=== PATIENT | male | born 1985 | race Caucasian/White ===

== ENCOUNTER 2017-04-02 17:47 | Emergency (ER) | payer OTHER ==
[2017-04-02 19:50] LABS: BILIRUBIN,URINE NEGATIVE (NEGATIVE); GLUCOSE, URINE (UA) NEGATIVE (NEGATIVE); KETONES,URINE (UA) NEGATIVE (NEGATIVE); LEUKOCYTE ESTERASE, URINE NEGATIVE (NEGATIVE); NITRITE,URINE NEGATIVE (NEGATIVE); OCCULT BLOOD,URINE LARGE (NEGATIVE); PH,URINE 7.5 PH (5.0-7.5); PROTEIN,URINE TRACE mg/dL (NEGATIVE); UROBILINOGEN,URINE 0.2 (NORMAL) E.U./dL (NORMAL)
[2017-04-02 20:03] LABS: CLARITY,URINE HAZY (CLEAR)
[2017-04-02 20:15] LABS: BACTERIA,URINE None Seen /HPF (None Seen); SQUAMOUS EPITHELIAL CELL,UR NONE SEEN (<= Few)
[2017-04-02] MEDS ORDERED: ONDANSETRON ODT 4 MG TABLET TL STA (20:20)
[2017-04-02] MEDS ORDERED: KETOROLAC 60 MG/2 ML VIAL IM STA (20:20)
--- NOTE | 2017-04-02 21:13 | ED Physician Documentation ---
PD HPI ABD PAIN - Stated complaint Stated Complaint: ABD PX - Chief complaint Chief Complaint: Abd Pain - History obtained from History obtained from: Patient, Family - History of Present Illness Timing - onset: Yesterday Timing - details: Gradual onset, Still present Quality: Cramping, Aching, Throbbing Location: [facility] Radiation: , Other Associated symptoms: Nausea. No: Fever, Vomiting, Diarrhea, Constipation Similar symptoms before: Has not had sx before Recently seen: Not recently seen - Additional information Additional information: Patient is a 31 year old male with no significant past medical history who is presenting to the emergency department for left lower quadrant abdominal pain with radiation down to his groin. Patient denies any history of kidney stones in the past. Patient does report nausea, secondary to the pain, but no vomiting. Review of Systems Constitutional: denies: Fever, Chills Eyes: denies: Decreased vision, Photophobia Ears: denies: Ear pain, Drainage/discharge Nose: reports: Reviewed and negative Throat: reports: Reviewed and negative Cardiac: denies: Chest pain / pressure, Palpitations Respiratory: denies: Dyspnea, Cough GI: reports: Abdominal Pain, Nausea. denies: Vomiting, Constipation, Diarrhea : denies: Dysuria, Frequency Skin: denies: Rash, Lesions Musculoskeletal: denies: Back pain Neurologic: denies: Generalized weakness, Focal weakness, Numbness Immunocompromised: denies: Immunocompromised PD PAST MEDICAL HISTORY - Present Medications Home Medications: Ambulatory Orders Medication Instructions Recorded Confirmed FLUoxetine [PROzac] 30 mg PO DAILY 04/02/17 04/02/17 Ketorolac [Toradol] 10 mg PO Q6H #20 tablet 04/02/17 Lamotrigine [Lamictal ([place])] 1 tab PO DAILY 04/02/17 04/02/17 Ondansetron Odt [Zofran] 4 mg TL Q6H PRN #20 tablet 04/02/17 Tamsulosin HCl [Flomax] 0.4 mg PO DAILY #10 cap.er.24h 04/02/17 - Allergies Allergies/Adverse Reactions: Allergies Allergy/AdvReac Type Severity Reaction Status Date / Time No Known Drug Allergies Allergy Verified 04/02/17 20:35 PD ED PE NORMAL - Vitals Vital signs reviewed: Yes - General General: Alert and oriented X 3, No acute distress - HEENT HEENT: Atraumatic, PERRL - Cardiac Cardiac: RRR, No murmur - Respiratory Respiratory: No respiratory distress - Abdomen Abdomen: Soft, Non distended - Derm Derm: Normal color, Warm and dry, No rash - Extremities Extremities: No deformity, No tenderness to palpate, No edema - Neuro Neuro: Alert and oriented X 3, No motor deficit, No sensory deficit, Normal speech - Psych Psych: Normal mood PD ED PE EXPANDED - General General: Alert, In Pain - Male Male : Normal Exam, Testes descended sarah. No: Skin lesions, Tenderness Results - Vitals Vitals: Vital Signs - 24 hr 04/02/17 04/02/17 04/02/17 17:57 20:52 21:45 Temperature 36.7 C 37.6 C H Heart Rate 82 71 Respiratory 20 17 15 Rate Blood Pressure 131/86 H 124/84 H O2 Saturation 99 94 04/02/17 21:46 Temperature Heart Rate Respiratory 17 Rate Blood Pressure O2 Saturation Oxygen O2 Source Room air - Labs Labs: Laboratory Tests 04/02/17 18:35 Urine Color YELLOW Urine Clarity HAZY Urine pH 7.5 Ur Specific Mather 1.020 Urine Protein TRACE Urine Glucose (UA) NEGATIVE Urine Ketones NEGATIVE Urine Occult Blood LARGE H Urine Nitrite NEGATIVE Urine Bilirubin NEGATIVE Urine Urobilinogen 0.2 (NORMAL) Ur Leukocyte Esterase NEGATIVE Urine RBC 11-25 H Urine WBC 0-3 Ur Squamous Epith Cells NONE SEEN Urine Bacteria None Seen Ur Microscopic Review INDICATED Urine Culture Comments NOT INDICATED - Rads (name of study) ct abd pelvis Radiology: Final report received (4 by 5mm left uretal stone) PD MEDICAL DECISION MAKING - ED course Complexity details: reviewed old records, reviewed results, re-evaluated patient , considered differential, d/w patient, d/w family ED course: Patient was seen and examined at beside. Urine was collected and patient was treated with toradol and zofran. there was hematuria so imaging was ordered. Patient stated that his pain had resolved with the toradol. patient was found to have a 5 by 4mm stone. Patient was able to tolerate PO without difficulty and was appropriate for outpatient follow up. Departure - Departure Disposition: 01 Home, Self Care Clinical Impression: Kidney stone on left side Condition: Good Instructions: ED Stone Renal W Colic Follow-Up: KIMBERLY MAYFIELD MD [Primary Care Provider] - Within 3 Days Prescriptions: Ketorolac [Toradol] 10 mg PO Q6H #20 tablet Ondansetron Odt [Zofran] 4 mg TL Q6H PRN #20 tablet PRN Reason: Nausea / Vomiting Tamsulosin HCl [Flomax] 0.4 mg PO DAILY #10 cap.er.24h Comments: Your symptoms today are being caused by a kidney stone. It is important that you stay well hydrated. You should take a daily flomax and double your water intake. You should not drink any soda or other diuretics. You should take tylenol and toradol for pain and zofran as needed for nausea. You should follow up with your pmd for furhter care. You may return to the emergency department at any time for new, worsening or uncontrollable symptoms. Discharge Date/Time: 04/02/17 21:48
--- NOTE | 2017-04-02 21:27 | CT Preliminary Report ---
Exam: CT ABDOMEN/PELVIS W/O IMPRESSION: 1. Acute obstructing 5 x 4 mm distal left ureteral stone results in moderate left hydroureter and hyd ronephrosis. No additional nonobstructing left-sided renal stones. No obstructing or nonobstructing r ight-sided renal stones. 2. Diverticulosis without inflammation. [facility] SITE ID: [id number]
[2017-04-02 21:46] VITALS: BP 124/84
--- NOTE | 2017-04-02 23:03 | CT Report ---
EXAM: CT ABDOMEN AND PELVIS (CT KUB) EXAM DATE: 04/02/2017 08:39 PM. CLINICAL HISTORY: Left-sided flank pain and hematuria. COMPARISONS: None. TECHNIQUE: Routine axial helical CT imaging was performed through the abdomen and pelvis without IV c ontrast. Reconstructions: Coronal and sagittal. In accordance with CT protocol optimization, one or more of the following dose reduction techniques w ere utilized for this exam: automated exposure control, adjustment of mA and/or KV based on patient s ize, or use of iterative reconstructive technique. FINDINGS: Lung Bases: Incidental hiatal hernia noted. Right Kidney/Ureter: No stones, hydronephrosis, or hydroureter. No perinephric fat stranding. Left Kidney/Ureter: 5 x 4 mm distal left ureteral stone results in moderate hydroureter and hydroneph rosis. Moderate perinephric fat stranding. No contour deforming renal mass noted. No non obstructing stones are noted. Other Solid Organs: Noncontrast images of the solid organs are grossly unremarkable. Gallbladder/Bile Ducts: Unremarkable. Peritoneal Cavity: No free fluid, free air or eloisa adenopathy. Bowel is grossly unremarkable. Incide ntal scattered diverticula are noted. No inflammation. Appendix is normal. Pelvic Organs: Mild seminal vesicle and bladder enlargement with central coarse prostate calcificatio ns noted. No bladder stones or wall thickening. Noncontrast images of the visualized pelvic organs ar e unremarkable. Vasculature: Unremarkable. Other: None. IMPRESSION: 1. Acute obstructing 5 x 4 mm distal left ureteral stone results in moderate left hydroureter and hyd ronephrosis. No additional nonobstructing left-sided renal stones. No obstructing or nonobstructing r ight-sided renal stones. 2. Diverticulosis without inflammation. [facility] Referring Provider Line: [phone] SITE ID: [id number]
== END 2017-04-02 21:48 | disposition home or self-care (01) ==
LOC: ED 17:47
DX: N13.2 Hydronephrosis with renal and ureteral calculous obstruction (principal)
CPT/HCPCS: 74176; 81001; 96372; 99283; 99284; Q0162; 81003; 87086